=== PATIENT | male | born 1980 | race Two or more races ===

== ENCOUNTER 2021-11-05 08:05 | Day surgery (SDC) | payer OTHER ==
[~2021-11-05 08:05] MED LIST: FENOFIBRATE30 MG PO
== END 2021-11-05 21:45 | disposition home or self-care (01) ==
LOC: CIR.AMB 08:05
PROVIDERS: ATTEND Orthopaedic Surgery Hand Surgery
DX: S62.311A Displaced fracture of base of second metacarpal bone, left hand, initial encounter for closed fracture (principal); Z20.822 Contact with and (suspected) exposure to COVID-19